=== PATIENT | male | born 1990 | race Caucasian/White ===

== ENCOUNTER 2017-04-07 18:06 | Emergency (ER) | payer OTHER ==
[2017-04-07 18:15] VITALS: BP 147/69; PULSE 102; RESP 20; TEMP 97.9
--- NOTE | 2017-04-07 18:26 | ED ---
General Adult HPI - General Chief complaint: Extremity Injury, Upper Stated complaint: IHS-Shoulder Pain Time Seen by Provider: 04/07/17 18:18 Source: patient, RN notes reviewed Mode of arrival: ambulatory Limitations: no limitations - History of Present Illness Initial comments: Patient 26-year-old male who presents emergency room today with a chief complaint of injury to the left shoulder that occurred just prior to arrival. He does admit that he was at work earlier today pushing a cart that was approximately 500 pounds. States felt a pop in the anterior left shoulder. Does admit that he's had some pain locally to the area that seems to be worse with extension and abduction of the left shoulder. Patient states she has not tried anything for pain. He denies any other injury or complaint. Patient denies any recent fever, chills, shortness of breath, chest pain, back pain, abdominal pain, nausea or vomiting, numbness or tingling, dysuria or hematuria, constipation or diarrhea, headaches or visual changes, or any other complaints. - Related Data Home Medications Medication Instructions Recorded Confirmed Dextroamphetamine/Amphetamine 20 mg PO BID 04/07/17 04/07/17 [Adderall] Previous Rx's Medication Instructions Recorded Ibuprofen [Motrin] 600 mg PO Q6HR PRN #40 day 04/07/17 Allergies Allergy/AdvReac Type Severity Reaction Status Date / Time latex Allergy Rash/Hives Verified 04/07/17 18:40 Review of Systems ROS Statement: Those systems with pertinent positive or pertinent negative responses have been documented in the HPI. ROS Other: All systems not noted in ROS Statement are negative. Past Medical History Past Medical History: No Reported History History of Any Multi-Drug Resistant Organisms: None Reported Past Surgical History: No Surgical Hx Reported Past Psychological History: No Psychological Hx Reported Smoking Status: Current some day smoker Past Alcohol Use History: Daily, Heavy Past Drug Use History: Prescription Drug Abuse General Exam - General Exam Comments Initial Comments: General: The patient is awake and alert, in no distress, and does not appear acutely ill. Neck: The neck is supple, there is no tenderness or JVD. Cardiovascular: There is a regular rate and rhythm. No murmur, rub or gallop is appreciated. Respiratory: Lungs are clear to auscultation, respirations are non-labored, breath sounds are equal. No wheezes, stridor, rales, or rhonchi. Musculoskeletal: Normal appearance of the shoulder no obvious deformity. Shows full range of motion. Does have tenderness with abduction and extension of the left shoulder. Strength is 5/5 in all areas. Sensation intact with pulses equal bilaterally 2+. Neurological: A&O x 3. CN II-XII intact, There are no obvious motor or sensory deficits. Coordination appears grossly intact. Speech is normal. Skin: Skin is warm and dry and no rashes or lesions are noted. Psychiatric: Normal mood and affect. Limitations: no limitations Course Vital Signs 04/07/17 18:13 Temperature 97.9 F Pulse Rate 102 H Respiratory 20 Rate Blood Pressure 147/69 O2 Sat by Pulse 99 Oximetry Medical Decision Making - Medical Decision Making X-rays negative for any acute fracture dislocation. Results were discussed with the patient. Advised anti-inflammatories for pain. Advised follow-up with orthopedics for further evaluation if symptoms persist over the next 2-5 days. Disposition Clinical Impression: Injury of shoulder, left Disposition: HOME SELF-CARE Condition: Good Instructions: Muscle Strain (ED) Additional Instructions: Please use ibuprofen for pain as discussed. Please follow-up with the orthopedic doctor symptoms persist over the next 2-5 days for further evaluation. Please return to emergency room for any other concerns. Prescriptions: Ibuprofen [Motrin] 600 mg PO Q6HR PRN #40 day PRN Reason: Pain Referrals: Nelson Layne MD [Primary Care Provider] - 1-2 days Salas Smith MD [STAFF PHYSICIAN] - 1-2 days Time of Disposition: 18:48
--- NOTE | 2017-04-07 18:38 | XR ---
EXAMINATION TYPE: XR shoulder complete LT DATE OF EXAM: 04/07/2017 COMPARISON: NONE HISTORY: Shoulder pain TECHNIQUE: 3 views FINDINGS: I see no fracture nor dislocation. Joint spaces are normal. There are no pathologic calcifi cations. IMPRESSION: Negative left shoulder exam.
== END 2017-04-07 19:05 | disposition home or self-care (01) ==
LOC: EC 18:06
DX: S49.92XA Unspecified injury of left shoulder and upper arm, initial encounter (principal); F17.200 Nicotine dependence, unspecified, uncomplicated; Z91.040 Latex allergy status; Z79.899 Other long term (current) drug therapy; X50.9XXA Other and unspecified overexertion or strenuous movements or postures, initial encounter; Y99.0 Civilian activity done for income or pay; Y92.69 Other specified industrial and construction area as the place of occurrence of the external cause
CPT/HCPCS: 99283

== ENCOUNTER 2019-04-04 00:25 | Emergency (ER) | payer OTHER ==
[2019-04-04 00:32] VITALS: RESP 18
[2019-04-04] MEDS ORDERED: DIPH,PERTUS(ACELL)TETVAC-LF 0.5 ML VIAL IM ONE (00:43)
[2019-04-04] MEDS ORDERED: LIDOCAINE 1% INJ 10MG/ML (20 ML MDV) SQ ONE (00:51)
--- NOTE | 2019-04-04 00:52 | ED ---
Trauma HPI - General Chief Complaint: Extremity Injury, Upper Stated Complaint: Rt Arm Injury Time Seen by Provider: 04/04/19 00:43 Source: patient Mode of arrival: ambulatory Limitations: no limitations - History of Present Illness Initial Comments: Dennys is a 28yo male who presents to the ER for evaluation of right elbow injury. Patient reports he slipped and fell getting out of his boat, landed on his right elbow in his gravel driveway immediately felt pain and noted a laceration and bleeding which prompted him to come to the ER for evaluation. Denies other injuries, did not strike his head, no LOC. Patient reports his Tetanus was updated in 2014. - Related Data Home Medications Medication Instructions Recorded Confirmed Dextroamphetamine/Amphetamine 20 mg PO BID 04/07/17 04/07/17 [Adderall] Previous Rx's Medication Instructions Recorded Ibuprofen [Motrin] 600 mg PO Q6HR PRN #40 day 04/07/17 Allergies Allergy/AdvReac Type Severity Reaction Status Date / Time No Known Allergies Allergy Verified 04/04/19 00:32 Review of Systems ROS Statement: Those systems with pertinent positive or pertinent negative responses have been documented in the HPI. ROS Other: All systems not noted in ROS Statement are negative. Past Medical History Past Medical History: No Reported History History of Any Multi-Drug Resistant Organisms: None Reported Past Surgical History: No Surgical Hx Reported Additional Past Surgical History / Comment(s): right ankle pigeon, Past Psychological History: No Psychological Hx Reported Smoking Status: Current some day smoker Past Alcohol Use History: Daily, Heavy Past Drug Use History: Prescription Drug Abuse General Exam - General Exam Comments Initial Comments: Physical Exam GENERAL: Patient is well-developed and well-nourished. Patient is nontoxic and well- hydrated and is in no distress. HENT: Normocephalic, Atraumatic. EYES: PERRL, EOMI PULMONARY: Unlabored respirations. No audible rales rhonchi or wheezing was noted. CARDIOVASCULAR: There is a regular rate and rhythm without any murmurs gallops or rubs. ABDOMEN: Soft and nontender with normal bowel sounds. SKIN: laceration over elbow, approximately 4cm Abrasion on forearm : Deferred NEUROLOGIC: Patient is alert and oriented x3. Moving all extremities spontaneously MUSCULOSKELETAL: Normal extremities with adequate strength and full range of motion. No lower extremity swelling or edema. No calf tenderness. PSYCHIATRIC: Normal psychiatric evaluation Limitations: no limitations Course Vital Signs 04/04/19 04/04/19 00:29 02:13 Temperature 97.7 F 98.0 F Pulse Rate 88 80 Respiratory 18 18 Rate Blood Pressure 131/83 133/72 O2 Sat by Pulse 100 99 Oximetry Procedures - Laceration Laceration #1 Consent Obtained: verbal consent Indication: laceration Site: upper extremity Description: flap, irregular, contaminated, foreign body Depth: simple, single layer, arterial injury Anesthetic Used: lidocaine 1% Anesthesia Technique: local infiltration Pre-repair: wound explored, irrigated extensively, deep structures intact, foreign body removed Type of Sutures: nylon Size of Sutures: 4-0 Number of Sutures: 2 Technique: simple, interrupted Complications: bleeding Patient Tolerated Procedure: well Medical Decision Making - Medical Decision Making Patient was seen and evaluated, history is obtained from patient and fianc bedside Patient was intoxicated, fell out of his boat in his driveway, landed in gravel has a significant laceration to his right elbow Patient is up-to-date on tetanus X-rays were ordered and revealed no obvious fracture or dislocation The wound was cleansed and thoroughly irrigated with 1 L of sterile water and cleansed with Betadine, gravel and plant debris was removed from the wound Upon cleansing a small superficial arterial bleed was noted and ligated with a [id number] suture The wound was approximated with 2 sutures to repair the flap, patient tolerated the repair well with no complications was discharged home in stable condition Disposition Clinical Impression: Laceration of elbow with foreign body Disposition: HOME SELF-CARE Condition: Stable Instructions (If sedation given, give patient instructions): Care For Your Stitches (DC), Care For Your Absorbable Stitches (ED) Is patient prescribed a controlled substance at d/c from ED?: No Referrals: Nelson Layne MD [Primary Care Provider] - 1-2 days
--- NOTE | 2019-04-04 01:13 | XR ---
EXAM: XR Right Elbow Complete, 3 or More Views CLINICAL HISTORY: ITS.REASON XR Reason: Pain TECHNIQUE: Frontal, lateral and oblique views of the right elbow. COMPARISON: No relevant prior studies available. FINDINGS: Bones/joints: Incidental finding of developmental supracondylar spur 418 process at the anterior aspect of the distal humeral shaft. No acute or healing fracture or malalignment. No significant joint effusion. Joint spaces are maintained. Soft tissues: Unremarkable. IMPRESSION: No acute trauma related or arthritic findings. No other findings to explain pain.
[2019-04-04 02:14] VITALS: BP 133/72; PULSE 80; TEMP 98
== END 2019-04-04 02:14 | disposition home or self-care (01) ==
LOC: EC 00:25
DX: S51.021A Laceration with foreign body of right elbow, initial encounter (principal); F17.200 Nicotine dependence, unspecified, uncomplicated; Z53.8 Procedure and treatment not carried out for other reasons; V92.09XA Drowning and submersion due to fall off unspecified watercraft, initial encounter; Y93.39 Activity, other involving climbing, rappelling and jumping off
CPT/HCPCS: 73080; 99283; 12032; J2001

== ENCOUNTER 2023-04-20 21:12 | Emergency (ER) | payer BC ==
--- NOTE | 2023-04-20 22:06 | ED ---
Psych HPI - General Source: patient, family, RN notes reviewed, old records reviewed Mode of arrival: wheelchair Limitations: no limitations - History of Present Illness MD Complaint: suicidal ideation, feels depressed -: unknown Associated Psychiatric Symptoms: depression, suicidal ideation History of same: Yes Quality: constant Improves With: none Worsens With: none Context: recent alcohol abuse Associated Symptoms: denies other symptoms Treatments Prior to Arrival: placed on mental health hold If Self Harm: admits thoughts of self harm <Yaya Rodriguez - Last Filed: 04/20/23 22:12> <Srinivas Da Silva - Last Filed: 04/21/23 14:34> - General Chief Complaint: Psychiatric Symptoms Stated Complaint: Suicidal, drinking Time Seen by Provider: 04/20/23 21:32 - History of Present Illness Initial Comments: This is a 32-year-old male to the emergency department for evaluation. Patient is preferring not to participate history of present illness. Patient presents with alcohol intoxication and history of psychiatric illness. Patient is petition for psychiatric evaluation and treatment secondary to suicidal thoughts (Yaya Rodriguez) - Related Data Home Medications Medication Instructions Recorded Confirmed No Known Home Medications 04/20/23 04/20/23 Allergies Allergy/AdvReac Type Severity Reaction Status Date / Time No Known Allergies Allergy Verified 04/04/19 00:32 Review of Systems ROS Other: All systems not noted in ROS Statement are negative. <Yaya Rodriguez - Last Filed: 04/20/23 22:12> ROS Other: All systems not noted in ROS Statement are negative. <Srinivas Da Silva - Last Filed: 04/21/23 14:34> ROS Statement: Those systems with pertinent positive or pertinent negative responses have been documented in the HPI. Past Medical History Past Medical History: No Reported History History of Any Multi-Drug Resistant Organisms: None Reported Past Surgical History: No Surgical Hx Reported Additional Past Surgical History / Comment(s): right ankle pigeon, Past Psychological History: No Psychological Hx Reported Past Alcohol Use History: Daily, Heavy Past Drug Use History: Prescription Drug Abuse <Yaya Rodriguez - Last Filed: 04/20/23 22:12> General Exam General appearance: alert, in no apparent distress Head exam: Present: atraumatic, normocephalic, normal inspection Eye exam: Present: normal appearance, PERRL, EOMI. Absent: scleral icterus, conjunctival injection, periorbital swelling ENT exam: Present: normal exam, mucous membranes moist Neck exam: Present: normal inspection. Absent: tenderness, meningismus, lymphadenopathy Respiratory exam: Present: normal lung sounds bilaterally. Absent: respiratory distress, wheezes, rales, rhonchi, stridor Cardiovascular Exam: Present: regular rate, normal rhythm, normal heart sounds. Absent: systolic murmur, diastolic murmur, rubs, gallop, clicks GI/Abdominal exam: Present: soft, normal bowel sounds. Absent: distended, tenderness, guarding, rebound, rigid Extremities exam: Present: normal inspection, full ROM, normal capillary refill. Absent: tenderness, pedal edema, joint swelling, calf tenderness Back exam: Present: normal inspection Neurological exam: Present: alert, oriented X3, CN II-XII intact Psychiatric exam: Present: normal affect, normal mood Skin exam: Present: warm, dry, intact, normal color. Absent: rash <Yaya Rodriguez - Last Filed: 04/20/23 22:12> Course <Yaya Rodriguez - Last Filed: 04/20/23 22:12> Vital Signs 04/20/23 04/21/23 21:23 11:30 Temperature 98.5 F 98.7 F Pulse Rate 124 H 97 Respiratory 20 18 Rate Blood Pressure 146/102 135/72 O2 Sat by Pulse 94 L 97 Oximetry - Reevaluation(s) Reevaluation #1: 04/20/23 22:13 Medical records reviewed (Yaya Rodriguez) Medical Decision Making - Lab Data Result diagrams: 04/20/23 22:46 04/20/23 22:46 <Srinivas Da Silva - Last Filed: 04/21/23 14:34> - Medical Decision Making Was pt. sent in by a medical professional or institution (Dr. PA, SALVAGE MACHINE OPERATOR, urgent care, hospital, or alf...) When possible be specific @ -No Did you speak to anyone other than the patient for history (EMS, parent, family, police, friend...)? What history was obtained from this source @ -No Did you review nursing and triage notes (agree or disagree)? Why? @ -I reviewed and agree with nursing and triage notes Were old charts reviewed (outside hosp., previous admission, EMS record, old EKG, old radiological studies, urgent care reports/EKG's, alf records)? Report findings @ -No old charts were reviewed Differential Diagnosis (chest pain, altered mental status, abdominal pain women, abdominal pain men, vaginal bleeding, weakness, fever, dyspnea, syncope, headache, dizziness, GI bleed, back pain, seizure, CVA, palpatations, mental health, musculoskeletal)? @ -[Differential Mental Health Depression, anxiety, bipolar, psychosis, schizophrenia, borderline personality, situational depression, adjustment disorder, behavioral disorder, brain tumor, malingering, substance abuse, encephalopathy, medication reaction, dementia, hypothyroidism, degenerative neurologic disorder, lupus.... This is not meant to be all-inclusive list EKG interpreted by me (3pts min.). @ -As above X-rays interpreted by me (1pt min.). @ -None done CT interpreted by me (1pt min.). @ -None done U/S interpreted by me (1pt. min.). @ -None done What testing was considered but not performed or refused? (CT, X-rays, U/S, labs)? Why? @ -None What meds were considered but not given or refused? Why? @ -None Did you discuss the management of the patient with other professionals (professionals i.e. , PA, SALVAGE MACHINE OPERATOR, lab, RT, psych nurse, child protective services social worker, production lead, teacher, psychological operations officer, case finisher)? Give summary @ -No Was smoking cessation discussed for >3mins.? @ -No Was critical care preformed (if so, how long)? @ -No Were there social determinants of health that impacted care today? How? (Homelessness, low income, unemployed, alcoholism, drug addiction, transportation, low edu. Level, literacy, decrease access to med. care, fci, rehab)? @ -No Was there de-escalation of care discussed even if they declined (Discuss DNR or withdrawal of care, Hospice)? DNR status @ -No What co-morbidities impacted this encounter? (DM, HTN, Smoking, COPD, CAD, Cancer, CVA, ARF, Chemo, Hep., AIDS, mental health diagnosis, sleep apnea, morbid obesity)? @ -[Alcohol abuse Was patient admitted / discharged? Hospital course, mention meds given and route, prescriptions, significant lab abnormalities, going to OR and other pertinent info. @ -[Patient had been evaluated by the prior physician, was awaiting sobriety for EPS evaluation. He was evaluated and felt to be stable for discharge. He was given referral and evaluation by the [facility]. Patient stable for discharge. Undiagnosed new problem with uncertain prognosis? @ -No Drug Therapy requiring intensive monitoring for toxicity (Heparin, Nitro, Insulin, Cardizem)? @ -No Were any procedures done? @ -No Diagnosis/symptom? @ Depression, alcohol abuse Acute, or Chronic, or Acute on Chronic? @ -[Acute Uncomplicated (without systemic symptoms) or Complicated (systemic symptoms)? @ -default Side effects of treatment? @ -No Exacerbation, Progression, or Severe Exacerbation? @ -No Poses a threat to life or bodily function? How? (Chest pain, [place], [place], pneumonia, PE, COPD, DKA, ARF, appy, cholecystitis, CVA, Diverticulitis, Homicidal, Suicidal, threat to staff... and all critical care pts) @ -Yes, depression, suicidal thoughts (Srinivas Da Silva) - Lab Data Lab Results 04/20/23 04/20/23 04/21/23 Range/Units 22:46 22:46 00:27 WBC 7.3 (3.8-10.6) k/uL RBC 4.96 (4.30-5.90) m/uL Hgb 15.1 (13.0-17.5) gm/dL Hct 43.7 (39.0-53.0) % MCV 88.1 (80.0-100.0) fL MCH 30.3 (25.0-35.0) pg MCHC 34.4 (31.0-37.0) g/dL RDW 13.5 (11.5-15.5) % Plt Count 346 (150-450) k/uL MPV 9.0 Neutrophils % 45 % Lymphocytes % 44 % Monocytes % 6 % Eosinophils % 2 % Basophils % 1 % Neutrophils # 3.3 (1.3-7.7) k/uL Lymphocytes # 3.2 (1.0-4.8) k/uL Monocytes # 0.4 (0-1.0) k/uL Eosinophils # 0.1 (0-0.7) k/uL Basophils # 0.1 (0-0.2) k/uL Sodium 139 (137-145) mmol/L Potassium 4.7 (3.5-5.1) mmol/L Chloride 98 (98-107) mmol/L Carbon Dioxide 21 L (22-30) mmol/L Anion Gap 20 mmol/L BUN 8 L (9-20) mg/dL Creatinine 1.04 (0.66-1.25) mg/dL Est GFR (CKD-EPI)AfAm >90 (>60 ml/min/1.73 sqM) Est GFR (CKD-EPI)NonAf >90 (>60 ml/min/1.73 sqM) Glucose 110 H (74-99) mg/dL Calcium 9.4 (8.4-10.2) mg/dL Total Bilirubin 0.5 (0.2-1.3) mg/dL AST 87 H (17-59) U/L ALT 72 H (4-49) U/L Alkaline Phosphatase 78 (38-126) U/L Total Protein 9.0 H (6.3-8.2) g/dL Albumin 5.2 H (3.5-5.0) g/dL Urine Color Light Yellow Urine Appearance Clear (Clear) Urine pH 6.0 (5.0-8.0) Ur Specific [place] 1.008 (1.001-1.035) Urine Protein Negative (Negative) Urine Glucose (UA) Negative (Negative) Urine Ketones Negative (Negative) Urine Blood Negative (Negative) Urine Nitrite Negative (Negative) Urine Bilirubin Negative (Negative) Urine Urobilinogen <2.0 (<2.0) mg/dL Ur Leukocyte Esterase Negative (Negative) Urine RBC 0 (0-5) /hpf Urine WBC 0 (0-5) /hpf Urine Bacteria NONE (None) /hpf Urine Mucus NONE (None) /hpf Urine Opiates Screen Not Detected (NotDetected) Ur Oxycodone Screen Not Detected (NotDetected) Urine Methadone Screen Not Detected (NotDetected) Ur Propoxyphene Screen Not Detected (NotDetected) Ur Barbiturates Screen Not Detected (NotDetected) U Tricyclic Antidepress Not Detected (NotDetected) Ur Phencyclidine Scrn Not Detected (NotDetected) Ur Amphetamines Screen Not Detected (NotDetected) U Methamphetamines Scrn Not Detected (NotDetected) U Benzodiazepines Scrn Not Detected (NotDetected) Urine Cocaine Screen Not Detected (NotDetected) U Marijuana (THC) Screen Not Detected (NotDetected) Serum Alcohol 338 H* mg/dL Disposition <Yaya Rodriguez - Last Filed: 04/20/23 22:12> Is patient prescribed a controlled substance at d/c from ED?: No Time of Disposition: 14:34 <Srinivas Da Silva - Last Filed: 04/21/23 14:34> Clinical Impression: Alcoholism, Depression Disposition: HOME SELF-CARE Condition: Fair Instructions (If sedation given, give patient instructions): Depression (ED), Alcohol Intoxication (ED) Referrals: None,Stated [REFERRING] - 1-2 days Nelson Layne MD [REFERRING] - 1-2 days
[2023-04-20 22:52] LABS: Basophils # (A) 0.1 k/uL (0-0.2); Basophils % (A) 1 %; Eosinophils # (A) 0.1 k/uL (0-0.7); Eosinophils % (A) 2 %; HCT 43.7 % (39.0-53.0); HGB 15.1 gm/dL (13.0-17.5); Lymphocytes # (A) 3.2 k/uL (1.0-4.8); Lymphocytes % (A) 44 %; MCH 30.3 pg (25.0-35.0); MCHC 34.4 g/dL (31.0-37.0); MCV 88.1 fL (80.0-100.0); Monocytes # (A) 0.4 k/uL (0-1.0); Monocytes % (A) 6 %; Neutrophils # (A) 3.3 k/uL (1.3-7.7); Neutrophils % (A) 45 %; Platelet Count 346 k/uL (150-450); RBC 4.96 m/uL (4.30-5.90); RDW 13.5 % (11.5-15.5); WBC 7.3 k/uL (3.8-10.6)
[2023-04-20 23:05] LABS: ALT 72 U/L (4-49); AST 87 U/L (17-59); African American GFR (CKD) >90 (>60 ml/min/1.73 sqM); Albumin 5.2 g/dL (3.5-5.0); Alkaline Phosphatase 78 U/L (38-126); Anion Gap 20 mmol/L; Blood Urea Nitrogen 8 mg/dL (9-20); Calcium 9.4 mg/dL (8.4-10.2); Carbon Dioxide 21 mmol/L (22-30); Chloride 98 mmol/L (98-107); Glucose 110 mg/dL (74-99); Non-African American GFR(CKD) >90 (>60 ml/min/1.73 sqM); Potassium 4.7 mmol/L (3.5-5.1); Sodium 139 mmol/L (137-145); Total Bilirubin 0.5 mg/dL (0.2-1.3)
[2023-04-20 23:14] LABS: Alcohol 338 mg/dL
[2023-04-21] MEDS ORDERED: NICOTINE 21MG/24HR PATCH TRANSDERM STA (00:09)
[2023-04-21 01:42] LABS: Amphetamine Screen,Urine Not Detected (NotDetected); Barbiturate Screen,Urine Not Detected (NotDetected); Benzodiazepines Screen,Urine Not Detected (NotDetected); Cocaine Screen,Urine Not Detected (NotDetected); Methadone Screen, Urine Not Detected (NotDetected); Opiate Screen,Urine Not Detected (NotDetected); Oxycodone Screen, Urine Not Detected (NotDetected); Phencyclidine Screen,Urine Not Detected (NotDetected); Tricyclic Antidepressant,Urine Not Detected (NotDetected); Urn Cannabinoid Scrn Not Detected (NotDetected)
[2023-04-21 02:05] LABS: Appearance,Urine Clear (Clear); Color,Urine Light Yellow; Specific Gravity,Urine 1.008 (1.001-1.035)
[2023-04-21 02:06] LABS: Bilirubin,Urine Negative (Negative); Blood,Urine Negative (Negative); Glucose,Urine (UA) Negative (Negative); Ketones,Urine Negative (Negative); Leukocyte Esterase,Urine Negative (Negative); Nitrite,Urine Negative (Negative); Protein,Urine Negative (Negative); Urobilinogen,Urine <2.0 mg/dL (<2.0)
[2023-04-21 02:19] LABS: RBC,Urine 0 /hpf (0-5); WBC,Urine 0 /hpf (0-5)
[2023-04-21 11:53] VITALS: RESP 18
[2023-04-21 15:40] VITALS: BP 168/94; PULSE 74; TEMP 98.1
== END 2023-04-21 15:41 | disposition home or self-care (01) ==
LOC: EC 21:12
DX: F32.A Depression, unspecified (principal); F10.20 Alcohol dependence, uncomplicated; Y90.8 Blood alcohol level of 240 mg/100 ml or more
CPT/HCPCS: 36415; 80053; 85025; 81003; 80306; 80320; 99285; S4990